=== PATIENT | male | born 1940 | race Caucasian/White ===

== ENCOUNTER 2022-12-08 08:52 | Emergency (ER) | payer MEDICAID, OTHER ==
[~2022-12-08] VITALS: Ht 167.6 cm; Wt 93.6 kg
[2022-12-08 10:00] VITALS: BP 132/72
[2022-12-08] MEDS ORDERED: IPRATROPIUM BROM 0.5 MG/2.5ML INH SOL NEB ONE (10:00)
[2022-12-08] MEDS ORDERED: cefTRIAXone SOD 1,000 MG VL IM ONE (10:00)
[2022-12-08] MEDS ORDERED: ALBUTEROL SULF 2.5 MG/0.5ML(0.5%) NEB SOLN NEB ONE (10:00)
[2022-12-08] MEDS ORDERED: methylPREDNISolone SOD SUCC 125 MG/2 ML VL IM ONE (10:00)
[2022-12-08] MEDS ORDERED: ALBUTEROL MEDNEB 2.5 mg/3ml NEB ONE (10:06)
[2022-12-08] MEDS ORDERED: LEVO500T31 PO ×3 (10:57→11:35)
[2022-12-08] MEDS ORDERED: PRED20TA2 PO ×3 (10:57→11:35)
[2022-12-08] MEDS ORDERED: BENZ100C19 PO ×3 (10:57→11:35)
== END 2022-12-08 11:35 | disposition home or self-care (01) ==
LOC: EDBD 08:52 → ER 08:55
DX: J44.1 Chronic obstructive pulmonary disease with (acute) exacerbation (principal); J02.9 Acute pharyngitis, unspecified
CPT/HCPCS: 71046; 93005; 94640; 96372; 99284; J0696; J2930; J7644

== ENCOUNTER 2022-12-18 10:28 | Inpatient (IN) | payer MEDICARE, MEDICAID ==
[~2022-12-18] VITALS: Ht 175.3 cm; Wt 91.0 kg
[~2022-12-18 10:28] MED LIST: BENZ100C19 PO; LEVO500T31 PO; PRED20TA2 PO
[2022-12-18 11:58] LABS: Basophils # (auto) 0 10 ^3/uL (0-0.2); Basophils % (auto) 0.2 % (0.0-2.0); Eosinophils # (auto) 0.1 10 ^3/uL (0-0.8); Eosinophils % (auto) 0.8 % (0.0-7.0); Hematocrit 37.1 % (41.0-53.0); Hemoglobin 12.6 g/dL (13.5-17.5); Lymphocytes # (auto) 1.4 10 ^3/uL (0.4-5.4); Lymphocytes % (auto) 13.5 % (10.0-50.0); Mean Corpuscular Hemoglobin 32.6 pg (28.0-32.0); Mean Corpuscular Hgb Conc. 33.9 g/dL (32.0-36.0); Mean Corpuscular Volume 96.1 fL (80.0-100.0); Monocytes # (auto) 1.4 10 ^3/uL (0-1.3); Monocytes % (auto) 13.5 % (0.0-12.0); Neutrophils # (auto) 7.7 10 ^3/uL (1.6-8.6); Red Blood Cells 3.86 10^6/uL (4.5-5.90); Red Cell Distribution Width 14.8 % (11.8-14.3); White Blood Cell 10.7 10^3/uL (4.4-10.8)
[2022-12-18 12:11] LABS: Albumin 3.1 g/dL (3.4-5.0); BUN/Creatinine Ratio 22.7; Calcium 9.8 mg/dL (8.5-10.1); Potassium 4.3 mmol/L (3.5-5.1)
[2022-12-18 12:13] LABS: Bilirubin, Total 1.1 mg/dL (0.2-1.0); Total Protein 6.2 g/dL (6.4-8.2)
[2022-12-18] MEDS ORDERED: CLINDAMYCIN 600MG IV 50 ML IV ONE (17:00)
[2022-12-18] MEDS ORDERED: cefTRIAXone 1GM/50ML D5W 50 ML IV ONE (17:00)
[2022-12-18] MEDS ORDERED: FUROSEMIDE 40 MG/4 ML VIAL IV ONE (17:00)
[2022-12-18] MEDS ORDERED: ALBUTEROL SULF 2.5 MG/0.5ML(0.5%) NEB SOLN NEB PRN (18:30)
[2022-12-18] MEDS ORDERED: IPRATROPIUM BROM 0.5 MG/2.5ML INH SOL NEB PRN (18:30)
[2022-12-18] MEDS ORDERED: ACETAMINOPHEN 325 MG TAB PO PRN (18:30)
[2022-12-18] MEDS ORDERED: NITROGLYCERIN 0.4 MG SL TAB SL PRN (18:30)
[2022-12-18] MEDS ORDERED: MORPHINE SULFATE INJ 2 MG/ml SYRG IV PRN ×2 (18:30)
[2022-12-18] MEDS ORDERED: POTASSIUM CHL 20 Meq TABLET PO ONE (18:30)
[2022-12-18] MEDS ORDERED: hydrALAZINE HCL 20 MG/ML VL IV PRN (18:45)
[2022-12-18] MEDS ORDERED: SODIUM CHLORIDE 0.9% 500 ML IV ONE (18:45)
[2022-12-18] MEDS ORDERED: DEXTROSE (50%) 50ML SYRG IV PRN (18:45)
[2022-12-18 18:55] VITALS: BP 113/78
[2022-12-18 19:28] LABS: Cholesterol 152 mg/dL (< 200)
[2022-12-18 19:30] LABS: HDL Cholesterol 70 mg/dL (40-59); LDL Cholesterol 77 mg/dL (< 100); Triglycerides 71 mg/dL (< 150)
[2022-12-18] MEDS ORDERED: IOHEXOL 350 MG/ML 100ML IJ ONE (20:50)
[2022-12-19] MEDS: ACCU-CHEK COMFORT CURVE STRIP VI SCH ×5 (00:49→21:49)
[2022-12-19] MEDS: InsuLIN REG 1unit/0.01ml Soln (100units/ml) SC SCH ×5 (01:02→21:33)
[2022-12-19] MEDS ORDERED: ALBUTEROL MEDNEB 2.5 mg/3ml NEB ONE ×2 (05:54→10:16)
[2022-12-19 05:58] LABS: Basophils # (auto) 0 10 ^3/uL (0-0.2); Basophils % (auto) 0.2 % (0.0-2.0); Eosinophils # (auto) 0 10 ^3/uL (0-0.8); Eosinophils % (auto) 0.2 % (0.0-7.0); Hematocrit 41.1 % (41.0-53.0); Hemoglobin 13.7 g/dL (13.5-17.5); Lymphocytes # (auto) 1.4 10 ^3/uL (0.4-5.4); Lymphocytes % (auto) 9.2 % (10.0-50.0); Mean Corpuscular Hemoglobin 32.4 pg (28.0-32.0); Mean Corpuscular Hgb Conc. 33.2 g/dL (32.0-36.0); Mean Corpuscular Volume 97.6 fL (80.0-100.0); Monocytes # (auto) 2.3 10 ^3/uL (0-1.3); Neutrophils # (auto) 11.6 10 ^3/uL (1.6-8.6); Neutrophils % (auto) 75.4 % (37.0-80.0); Nucleated Red Blood Cells % 0.1 %; Red Blood Cells 4.21 10^6/uL (4.5-5.90); Red Cell Distribution Width 14.5 % (11.8-14.3); White Blood Cell 15.5 10^3/uL (4.4-10.8)
[2022-12-19] MEDS: ALBUTEROL SULF 2.5 MG/0.5ML(0.5%) NEB SOLN NEB SCH ×2 (06:01→11:23)
[2022-12-19] MEDS: IPRATROPIUM BROM 0.5 MG/2.5ML INH SOL NEB SCH ×3 (06:01→20:51)
[2022-12-19 06:19] LABS: Albumin 3.6 g/dL (3.4-5.0); Calcium 10.2 mg/dL (8.5-10.1); Potassium 4.2 mmol/L (3.5-5.1)
[2022-12-19 06:23] LABS: BUN/Creatinine Ratio 20.6; Bilirubin, Total 1.2 mg/dL (0.2-1.0); Total Protein 7.4 g/dL (6.4-8.2)
[2022-12-19] MEDS: POTASSIUM CHL 20 Meq TABLET PO SCH (10:42)
[2022-12-19] MEDS: HYDROcodone-ACET 5/325MG TAB PO PRN ×2 (10:42→21:32)
[2022-12-19] MEDS: FUROSEMIDE 20 MG/2 ML VIAL IV SCH (10:42)
[2022-12-19] MEDS: ENOXAPARIN SOD 40 MG/0.4 ML SYRINGE SC SCH (10:43)
[2022-12-19] MEDS ORDERED: ALBUTEROL MEDNEB 2.5 mg/3ml NEB NEB PRN (15:30)
[2022-12-19 16:40] VITALS: BP 122/74
[2022-12-19] MEDS: ALBUTEROL MEDNEB 2.5 mg/3ml NEB NEB SCH (20:52)
[2022-12-19] MEDS ORDERED: METF-370 PO (21:42)
[2022-12-19 22:00] VITALS: BP 116/77
[2022-12-20] MEDS: HYDROcodone-ACET 5/325MG TAB PO PRN ×3 (06:00→20:53)
[2022-12-20] MEDS: IPRATROPIUM BROM 0.5 MG/2.5ML INH SOL NEB SCH ×3 (06:05→18:37)
[2022-12-20] MEDS: ALBUTEROL MEDNEB 2.5 mg/3ml NEB NEB SCH ×3 (06:05→18:37)
[2022-12-20] MEDS: ACCU-CHEK COMFORT CURVE STRIP VI SCH ×4 (06:48→20:54)
[2022-12-20] MEDS: InsuLIN REG 1unit/0.01ml Soln (100units/ml) SC SCH ×4 (06:48→20:58)
[2022-12-20] MEDS: ENOXAPARIN SOD 40 MG/0.4 ML SYRINGE SC SCH (08:51)
[2022-12-20] MEDS: FUROSEMIDE 20 MG/2 ML VIAL IV SCH (08:51)
[2022-12-20] MEDS: POTASSIUM CHL 20 Meq TABLET PO SCH (08:51)
[2022-12-20 09:00] VITALS: BP 111/70
[2022-12-20 13:00] VITALS: BP 102/86
[2022-12-20 16:28] VITALS: BP 119/68
[2022-12-20 20:00] VITALS: BP 101/63
[2022-12-21 00:56] LABS: Urine Bacteria FEW /hpf (None Seen); Urine Blood 1+ /uL (Negative); Urine Mucus FEW (None Seen); Urine WBC 5 /hpf (0 - 3)
[2022-12-21 05:00] VITALS: BP 106/70
[2022-12-21] MEDS: ALBUTEROL MEDNEB 2.5 mg/3ml NEB NEB SCH ×3 (06:34→18:14)
[2022-12-21] MEDS: IPRATROPIUM BROM 0.5 MG/2.5ML INH SOL NEB SCH ×3 (06:34→18:15)
[2022-12-21] MEDS: ACCU-CHEK COMFORT CURVE STRIP VI SCH ×4 (07:00→21:48)
[2022-12-21] MEDS: InsuLIN REG 1unit/0.01ml Soln (100units/ml) SC SCH ×4 (07:00→21:48)
[2022-12-21 08:30] VITALS: BP 113/73
[2022-12-21] MEDS: POTASSIUM CHL 20 Meq TABLET PO SCH (10:00)
[2022-12-21] MEDS: ENOXAPARIN SOD 40 MG/0.4 ML SYRINGE SC SCH (10:00)
[2022-12-21] MEDS: FUROSEMIDE 20 MG/2 ML VIAL IV SCH (10:00)
[2022-12-21 13:00] VITALS: BP 132/82
[2022-12-21 16:24] VITALS: BP 117/71
[2022-12-21] MEDS: HYDROcodone-ACET 5/325MG TAB PO PRN (16:37)
[2022-12-21] MEDS ORDERED: ALBUTEROL SULF 2.5 MG/0.5ML(0.5%) NEB SOLN ONE (17:58)
[2022-12-21 22:00] VITALS: BP 105/59
[2022-12-22 01:17] VITALS: BP 105/59
[2022-12-22 05:00] VITALS: BP 109/59
[2022-12-22] MEDS: InsuLIN REG 1unit/0.01ml Soln (100units/ml) SC SCH ×4 (05:57→21:46)
[2022-12-22] MEDS: ACCU-CHEK COMFORT CURVE STRIP VI SCH ×4 (05:57→21:46)
[2022-12-22] MEDS ORDERED: ALBUTEROL SULF 2.5 MG/0.5ML(0.5%) NEB SOLN ONE ×3 (06:28→17:47)
[2022-12-22] MEDS: ALBUTEROL MEDNEB 2.5 mg/3ml NEB NEB SCH ×3 (06:37→18:03)
[2022-12-22] MEDS: IPRATROPIUM BROM 0.5 MG/2.5ML INH SOL NEB SCH ×3 (06:37→18:03)
[2022-12-22 08:06] LABS: Immunoglobulin G, Serum 873 mg/dL (603-1613)
[2022-12-22 09:00] VITALS: BP 114/80
[2022-12-22] MEDS: POTASSIUM CHL 20 Meq TABLET PO SCH (09:36)
[2022-12-22] MEDS: FUROSEMIDE 20 MG/2 ML VIAL IV SCH (09:36)
[2022-12-22] MEDS: ENOXAPARIN SOD 40 MG/0.4 ML SYRINGE SC SCH (09:37)
[2022-12-22 13:00] VITALS: BP 117/76
[2022-12-22 17:01] VITALS: BP 127/80
[2022-12-22 22:00] VITALS: BP 119/78
[2022-12-23] MEDS: HYDROcodone-ACET 5/325MG TAB PO PRN ×3 (02:46→18:50)
[2022-12-23 04:59] VITALS: BP 111/61
[2022-12-23] MEDS ORDERED: ALBUTEROL SULF 2.5 MG/0.5ML(0.5%) NEB SOLN ONE ×2 (05:50→18:11)
[2022-12-23] MEDS: IPRATROPIUM BROM 0.5 MG/2.5ML INH SOL NEB SCH ×3 (06:00→18:39)
[2022-12-23] MEDS: ALBUTEROL MEDNEB 2.5 mg/3ml NEB NEB SCH ×2 (06:00→18:40)
[2022-12-23] MEDS: ACCU-CHEK COMFORT CURVE STRIP VI SCH ×4 (06:28→21:05)
[2022-12-23] MEDS: InsuLIN REG 1unit/0.01ml Soln (100units/ml) SC SCH ×4 (06:28→21:04)
[2022-12-23 08:00] VITALS: BP 110/67
[2022-12-23 09:00] VITALS: BP 110/67
[2022-12-23] MEDS: POTASSIUM CHL 20 Meq TABLET PO SCH (09:44)
[2022-12-23] MEDS: ENOXAPARIN SOD 40 MG/0.4 ML SYRINGE SC SCH (09:45)
[2022-12-23] MEDS: FUROSEMIDE 20 MG/2 ML VIAL IV SCH (10:46)
[2022-12-23] MEDS: levoFLOXacin 500MG 100 ML IV SCH (10:46)
[2022-12-23 13:00] VITALS: BP 118/70
[2022-12-23 17:00] VITALS: BP 129/78
[2022-12-23 22:00] VITALS: BP 125/76
[2022-12-24] MEDS: HYDROcodone-ACET 5/325MG TAB PO PRN (00:24)
[2022-12-24 05:00] VITALS: BP 111/56
[2022-12-24] MEDS ORDERED: ALBUTEROL SULF 2.5 MG/0.5ML(0.5%) NEB SOLN ONE ×2 (05:43→11:37)
[2022-12-24] MEDS: ALBUTEROL MEDNEB 2.5 mg/3ml NEB NEB SCH ×2 (06:00→12:15)
[2022-12-24] MEDS: IPRATROPIUM BROM 0.5 MG/2.5ML INH SOL NEB SCH ×2 (06:00→12:15)
[2022-12-24] MEDS: InsuLIN REG 1unit/0.01ml Soln (100units/ml) SC SCH ×3 (06:36→17:00)
[2022-12-24] MEDS: ACCU-CHEK COMFORT CURVE STRIP VI SCH ×3 (06:36→16:16)
[2022-12-24 09:00] VITALS: BP 137/82
[2022-12-24] MEDS: FUROSEMIDE 20 MG/2 ML VIAL IV SCH (09:41)
[2022-12-24] MEDS: ENOXAPARIN SOD 40 MG/0.4 ML SYRINGE SC SCH (09:42)
[2022-12-24] MEDS: levoFLOXacin 500MG 100 ML IV SCH (09:42)
[2022-12-24] MEDS: POTASSIUM CHL 20 Meq TABLET PO SCH (09:42)
[2022-12-24 13:00] VITALS: BP 116/74
[2022-12-24 17:05] VITALS: BP 137/82
[2022-12-24 17:06] VITALS: BP 112/71
== END 2022-12-24 17:31 | DRG 291 ==
LOC: ER 10:28 → EDBD 10:28 → TELE 18:21 → TELE-WESTW 12-19 02:39
PROVIDERS: ADMIT Registered Nurse; ATTEND Family Medicine
PROC: 05HB33Z Insertion of Infusion Device into Right Basilic Vein, Percutaneous Approach (ICD-10-PCS; principal; 2022-12-24)
DX: I11.0 Hypertensive heart disease with heart failure (principal); I50.31 Acute diastolic (congestive) heart failure; C90.00 Multiple myeloma not having achieved remission; L03.116 Cellulitis of left lower limb; J44.1 Chronic obstructive pulmonary disease with (acute) exacerbation; R78.81 Bacteremia; Z20.822 Contact with and (suspected) exposure to COVID-19; I71.43 Infrarenal abdominal aortic aneurysm, without rupture; M10.9 Gout, unspecified; E11.9 Type 2 diabetes mellitus without complications; M54.50 Low back pain, unspecified; Z91.041 Radiographic dye allergy status
CPT/HCPCS: 36415; 71045; 72131; 74176; 80053; 80061; 81001; 82784; 82962; 83036; 83605; 83615; 83880; 83883; 84443; 84484; 84550; 85025; 86334; 86335; 87040; 87077; 87081; 87186; 87426; 93005; 93306; 93971; 94640; G0378; J0696; J1815; J1956; J3490

== ENCOUNTER → 2025-08-12 | Outpatient (CLI) | payer MEDICARE, MEDICAID ==
[~2025-08-12] MED LIST changes: -BENZ100C19 PO; -LEVO500T31 PO; +METF-370 PO
[2025-08-12 09:18] LABS: Hematocrit 37.1 % (41.0-53.0); Hemoglobin 12.6 g/dL (13.5-17.5); Mean Corpuscular Hemoglobin 34.0 pg (28.0-32.0); Mean Corpuscular Volume 100.5 fL (80.0-100.0); Nucleated Red Blood Cells % 0.0 %
[2025-08-12 11:20] LABS: Alanine Aminotransferase 16 U/L (7-40); Albumin 4.3 g/dL (3.2-4.8); Alkaline Phosphatase 66 U/L (46-116); Anion Gap 8 (5-15); BUN/Creatinine Ratio 14.5 (10.0-20.0); Blood Urea Nitrogen 12 mg/dL (9-23); Carbon Dioxide 24 mmol/L (20-31); Glucose 90 mg/dL (74-106); Potassium 4.1 mmol/L (3.5-5.1); Sodium 141 mmol/L (136-145); Total Protein 7.0 g/dL (5.7-8.2)
[2025-08-12 11:30] LABS: Bilirubin, Total 0.7 mg/dL (0.2-1.0)
[2025-08-12 11:36] LABS: Calcium 10.6 mg/dL (8.7-10.4); Chloride 109 mmol/L (98-107)
[2025-08-12 13:29] LABS: Cholesterol 149 mg/dL (< 200); Triglycerides 108 mg/dL (< 150)
[2025-08-12 13:30] LABS: HDL Cholesterol 58 mg/dL (40-59)
== END | disposition home or self-care (01) ==
LOC: LAB 08:16
PROVIDERS: ATTEND Internal Medicine
DX: I10 Essential (primary) hypertension (principal); E11.9 Type 2 diabetes mellitus without complications
CPT/HCPCS: 36415; 80053; 80061; 83036; 84443; 85025

== ENCOUNTER → 2025-10-20 | Outpatient (CLI) | payer MEDICARE, MEDICAID | END | disposition home or self-care (01) | LOC: Rad HDHVI 12:58 | PROVIDERS: ATTEND Internal Medicine Cardiovascular Disease | DX: I08.8 Other rheumatic multiple valve diseases (principal); I51.7 Cardiomegaly; J44.9 Chronic obstructive pulmonary disease, unspecified | CPT/HCPCS: 93306 ==